=== PATIENT | female | born 1980 | race Two or more races ===

== ENCOUNTER 2019-09-22 11:13 | Outpatient (CLI) | payer OTHER | END 2019-09-22 12:45 | disposition home or self-care (01) | LOC: RAD 11:13 | DX: M16.11 Unilateral primary osteoarthritis, right hip (principal); M16.12 Unilateral primary osteoarthritis, left hip; M17.0 Bilateral primary osteoarthritis of knee ==

== ENCOUNTER → 2020-09-29 | Outpatient (CLI) | payer OTHER | END | disposition home or self-care (01) | LOC: MAMO-SONO 13:04 | PROVIDERS: ATTEND Obstetrics & Gynecology | DX: Z12.31 Encounter for screening mammogram for malignant neoplasm of breast (principal); N64.4 Mastodynia ==